=== PATIENT | female | born 1950 | race Caucasian/White ===

== ENCOUNTER → 2016-11-26 | Outpatient (CLI) | payer MEDICARE, OTHER | END | disposition home or self-care (01) | LOC: RAD.S 11-21 10:00 | DX: Z12.31 Encounter for screening mammogram for malignant neoplasm of breast (principal); R92.1 Mammographic calcification found on diagnostic imaging of breast ==

== ENCOUNTER → 2017-02-08 | Outpatient (CLI) | payer MEDICARE, OTHER | END | disposition home or self-care (01) | LOC: RAD.S 12:54 | DX: M81.0 Age-related osteoporosis without current pathological fracture (principal); M17.9 Osteoarthritis of knee, unspecified ==